=== PATIENT | male | born 1980 | race Caucasian/White ===

== ENCOUNTER 2016-09-14 02:51 | Inpatient (IN) | payer OTHER ==
[~2016-09-14] VITALS: Ht 182.9 cm; Wt 88.5 kg
--- NOTE | 2016-09-14 03:03 | NUR ---
PT BIBA FROM HOME C/O "WARM FUNNY FEELING IN CHEST WITH TINGELING TO FINGERS", LEFT WORSE THAN RIGHT, THAT STARTED AT 0145. ALL SYMPTOMS HAD RESOLVED (EXCEPT FOR SHAKEY FEELING) BY 0215 PRIOR TO EMS ARRIVAL. PT ADMITS TO ETOH AND MARIJUANA LAST EVENING (ETOH AT 2000 AND MARIJUANA AT ABOUT MIDNIGHT) FINGERSTICK BY EMS 111. PT STATES SYMPTOMS STARTED "A FEW MINUTES AFTER BEING INTIMATE" WITH SO, NSR ON CM HR 84. PT DENIES SOB/N/V/DIZZINESS
[2016-09-14 03:07] LABS: ABSOLUTE BASOPHIL COUNT 0 /CUMM (0.0-0.2); ABSOLUTE EOSINOPHIL COUNT 0.2 /CUMM (0.0-0.7); ABSOLUTE GRANULOCYTE CT 3.2 /CUMM (1.4-6.5); ABSOLUTE LYMPH COUNT 3.8 /CUMM (1.2-3.4); ABSOLUTE MONOCYTE COUNT 0.9 /CUMM (0.10-0.60); BASOPHIL % 0.5 % (0.0-2.0); EOSINOPHIL % 1.9 % (0-5); GRANULOCYTE % 39.3 % (42.2-75.2); HEMATOCRIT 42.1 % (42-52); MEAN CORPUSCULAR HGB 27.8 PG (27.0-31.0); MEAN CORPUSCULAR HGB CONC 32.7 G/DL (33.0-37.0); MEAN CORPUSCULAR VOLUME 85.2 FL (80.0-94.0); MEAN PLATELET VOLUME 7.3 FL (7.4-10.4); PLATELET COUNT 280 /CUMM (130-400); RBC DISTRIBUTION WIDTH 13.9 % (11.5-14.5); RED BLOOD CELL CT 4.95 /CUMM (4.70-6.10); WHITE BLOOD CELL COUNT 8.1 /CUMM (4.8-10.8)
--- NOTE | 2016-09-14 03:51 | NUR ---
PT MEDICATED WITH 324MG ASA PO PER EMAR.
--- NOTE | 2016-09-14 03:52 | RADIOLOGY REPORT ---
EXAMINATION: XR PORTABLE CHEST CLINICAL INFORMATION: Chest pain COMPARISON: None TECHNIQUE: Portable frontal view of the chest was obtained. FINDINGS: The lungs are well expanded. There is no focal consolidation, edema, or effusion. No pneumothorax. The cardiomediastinal silhouette is within normal limits. No acute osseous abnormality. Mild irregularity of the distal right clavicle is likely chronic. IMPRESSION: No acute pulmonary findings.
--- NOTE | 2016-09-14 04:10 | ED CARDIAC/CP/PALPITATIONS ---
History of Present Illness General Chief Complaint: Chest Pain Stated Complaint: BIBA CP Source: patient, family, old records Exam Limitations: no limitations Vital Signs & Intake/Output Vital Signs & Intake/Output Vital Signs Date Time Temp Pulse Resp B/P B/P Pulse O2 O2 Flow FiO2 Mean Ox Delivery Rate 09/14 0518 72 20 120/74 98 Room Air 09/14 0512 78 20 128/77 99 Room Air 09/14 0502 97.6 75 18 124/76 98 Room Air 09/14 0307 99 Room Air 09/14 0256 97.7 90 16 140/81 99 Room Air Allergies Coded Allergies: No Known Allergies (12/13/15) Reconcile Medications No Known Home Medications Triage Note: PT BIBA FROM HOME C/O "WARM FUNNY FEELING IN CHEST WITH TINGELING TO FINGERS", LEFT WORSE THAN RIGHT, THAT STARTED AT 0145. ALL SYMPTOMS HAD RESOLVED (EXCEPT FOR SHAKEY FEELING) BY 0215 PRIOR TO EMS ARRIVAL. PT ADMITS TO ETOH AND MARIJUANA LAST EVENING (ETOH AT 2000 AND MARIJUANA AT ABOUT MIDNIGHT) FINGERSTICK BY EMS 111. PT STATES SYMPTOMS STARTED "A FEW MINUTES AFTER BEING INTIMATE" WITH SO, NSR ON CM HR 84. PT DENIES SOB/N/V/DIZZINESS Triage Nurses Notes Reviewed? yes Onset: Just prior to arrival Duration: minute(s):, better, constant, continues in ED Timing: recent history Quality/Severity: mild, warmth Location: substernal Radiation: arms Activities at Onset: activity, 30 minutes after intercourse, marijuana and alcohol Prior Chest Pain/Card Workup: no prior cardiac workup Modifying Factors: Improves With: rest. Nitro Today/Relief: provided by ED Aspirin Today: 325 mg x 1, provided by ED Associated Symptoms: fatigue, shortness of breath HPI: 30 minutes after intercourse marijuana and alcohol patient developed left-sided chest warmth mild in severity radiating to left arm associated with weakness shaking fatigue shortness of breath. Denies fever chills nausea vomiting diarrhea headache dysuria rash bleeding previous episodes. Past History Travel History Traveled to [place] past 21 day No Medical History Any Pertinent Medical History? see below for history Neurological: TIA EENT: NONE Cardiovascular: NONE Respiratory: NONE Gastrointestinal: NONE Hepatic: NONE Renal: NONE Musculoskeletal: NONE Psychiatric: NONE Endocrine: NONE Surgical History Surgical History: none Psychosocial History What is your primary language Estonian Tobacco Use: Never used ETOH Use: occasional use Illicit Drug Use: marijuana Family History Hx Contributory? No Review of Systems Review of Systems Constitutional: Reports: see HPI, malaise, weakness. EENTM: Reports: no symptoms. Respiratory: Reports: see HPI, short of breath. Cardiovascular: Reports: see HPI, chest pain. GI: Reports: no symptoms. Genitourinary: Reports: no symptoms. Musculoskeletal: Reports: no symptoms. Skin: Reports: no symptoms. Neurological/Psychological: Reports: no symptoms. Hematologic/Endocrine: Reports: no symptoms. Immunologic/Allergic: Reports: no symptoms. All Other Systems: Reviewed and Negative Physical Exam Physical Exam General Appearance: well developed/nourished, alert, awake, anxious, mild distress Head: atraumatic, normal appearance Eyes: Bilateral: normal appearance, PERRL, EOMI. Ears, Nose, Throat: normal pharynx, normal ENT inspection, hearing grossly normal Neck: normal inspection, supple, full range of motion, no midline tenderness Respiratory: normal breath sounds, chest non-tender, no respiratory distress, quiet respiration, lungs clear Cardiovascular: regular rate/rhythm, normal peripheral pulses, norml femoral pulses equa Peripheral Pulses: 4+ carotid (R), 4+ carotid (L) Gastrointestinal: normal bowel sounds, soft, non-tender, no organomegaly Back: normal inspection, normal range of motion Extremities: normal inspection, normal capillary refill, normal range of motion, no edema Neurologic/Psych: no motor/sensory deficits, awake, alert, oriented x 3, normal gait, normal mood/affect, 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 Skin: intact, normal color, warm/dry Lymphatic: no anterior cervical nabil Core Measures ACS in differential dx? Yes ASA ordered for poss ACS? Yes-ordered Severe Sepsis Present: No Septic Shock Present: No Progress Differential Diagnosis: AMI, costochondritis, hyperkalemia, hypovolemia, pneumonia Plan of Care: Orders Procedure Date/time Status Regular Diet 09/14 B Active Patient Data 09/14 050 Active OXYGEN SETUP (GEN) 09/14 499 Active Saline Lock 09/14 050 Active Admit to inpatient 09/14 050 Active Vital Signs 09/14 050 Active Activity/Ambulation 09/14 499 Active Code Status 09/14 499 Active Add-on Test (ER Only) 09/15 411 Active Add-on Test (ER Only) 09/14 334 Active URINE DRUG SCREEN FOR ER ONLY 09/14 304 Complete TSH REFLEX 09/14 304 Complete MAGNESIUM 09/14 304 Complete ETHANOL 09/14 304 Complete TROPONIN LEVEL 09/14 258 Complete COMPREHENSIVE METABOLIC PANEL 09/14 258 Complete CBC WITHOUT DIFFERENTIAL 09/14 258 Complete B-TYPE NATRIURETIC PEP (BNP) 09/14 258 Complete EKG 09/15 251 Active Laboratory Tests 09/14/16304: Anion Gap 12, Estimated GFR > 60, BUN/Creatinine Ratio 17.8, Glucose 98, Calcium 10.1, Magnesium 1.8, Total Bilirubin 0.3, AST 19, ALT 25, Alkaline Phosphatase 54, Troponin I 0.14 *H, [id number]-C-Njzqditdwmn Pept 22.2, Total Protein 7.5, Albumin 4.8, Globulin 2.7, Albumin/Globulin Ratio 1.8, TSH &T3 &Free T4 Intrp 1.330, CBC w Diff NO MAN DIFF REQ, RBC 4.95, MCV 85.2, MCH 27.8, RDW 13.9, MPV 7.3 L, Gran % 39.3 L, Lymphocytes % 47.1, Monocytes % 11.2 H, Eosinophils % 1.9, Basophils % 0.5, Absolute Granulocytes 3.2, Absolute Lymphocytes 3.8 H, Absolute Monocytes 0.9 H, Absolute Eosinophils 0.2, Absolute Basophils 0, PUBS MCHC 32.7 L, Serum Alcohol < 10.0 09/14/16303: Urine Opiates Screen < 100.00, Methadone Screen < 40, Barbiturate Screen < 60, Ur Phencyclidine Scrn < 6.00, Amphetamines Screen < 100, U Benzodiazepines Scrn < 85, Urine Cocaine Screen < 50, Urine Cannabis Screen 21.10 (EVELYN COWAN,JEFERSON) Diagnostic Imaging: Viewed by Me: Radiology Read. Discussed w/RAD: Radiology Read. CXR Impression: no acute abnormality, no infiltrates, normal size heart, normal mediastinum Initial ED EKG: normal axis, normal intervals, normal p-waves, normal QRS complex, normal sinus rhythm, no ST T wave changes Rhythm Strip: normal sinus rhythm Departure Departure Disposition: STILL A PATIENT Condition: Stable Clinical Impression Primary Impression: Myocardial ischemia Secondary Impressions: Elevated troponin Referrals: GILLIAN COWAN,JOSHUA Altamirano (PCP/Family) Departure Forms: Customer Survey General Discharge Information Prescriptions: Current Visit Scripts No Known Home Medications Admission Note Spoke With: Lewis LUKE MD Documentation of Exam: Documentation of any treatments & extenuating circumstances including Concerns Regarding Discharge (functional status, medication knowledge or non-compliance, living conditions, etc.) that warrant an admission rather than observation: Cardiac monitoring serial EKG serial lab exam medication adjustment echocardiogram cardiology evaluation continuing care discharge planning Critical Care Note Critical Care Note Critical Care Time: 30-74 min (35)
--- NOTE | 2016-09-14 04:47 | NUR ---
CRITICAL TEST RESULTS [id number] JERO RAO 36 M TESTS AND RESULTS: TROP 0.14 Results received and read back by: JAMMIE MUHAMMAD Results received date and time: 09/14/16 0447 The following provider was notified of the results, and read the results back: DR RIVAS Notified date and time: 09/14/16 at 0448
--- NOTE | 2016-09-14 04:52 | NUR ---
DR RIVAS IN FOR POC
--- NOTE | 2016-09-14 05:18 | NUR ---
THIS RN ESTABLISHED IV ACCESS IN LH #20.
--- NOTE | 2016-09-14 05:20 | NUR ---
PT MEDICATED WITH 5MG LOPRESSOR IV AND 0.5GM NITROBID APPLIED TO CHEST WALL. SEE VITAL DOCUMENTION.
--- NOTE | 2016-09-14 05:30 | NUR ---
BED ASSIGNMENT 174-2
--- NOTE | 2016-09-14 05:34 | NUR ---
PT STATES THAT AT AGE 31 HE HAD A TIA AND HIS FATHER AT AN EARLY AGE FROM A "BAD HEART VALVE"
--- NOTE | 2016-09-14 06:00 | NUR ---
THIS RN CALLED TELE FLOOR 3X TO GIVE REPORT AND WAS PLACED ON HOLD WITH NO ANSWER.
--- NOTE | 2016-09-14 06:25 | NUR ---
REPORT GIVEN TO ARYAN CAMPBELL.
--- NOTE | 2016-09-14 06:44 | History & Physical ---
ANABEL COLBERT MD 09/14/16 0637: General Information and HPI MD Statement: I have seen and personally examined JERO RAO and documented this H&P. The patient is a 36 year old M who presented with a patient stated chief complaint of chest warmth. Source of Information: patient Exam Limitations: no limitations History of Present Illness: 36 year old male with past medical history significant for TIA 5 years ago presents with sudden onsent chest warm and tingling sensation radiating down his left arm of sudden onset. Began last night after being intimate with partner, lasted less than one hour. Patient says he felt jittery, anxious and tremulous, but denies any dyspnea, palpitations or diaphoresis. The sensation resolved on its own spontaneously. He has normal exercise tolerance, doesn't smoke, drank 2 gin and tonics and smoked some marijuana before the event. He was asymptomatic on arrival to the ED, no EKG changes, and received aspirin, lopressor, nitroglycerin. The TIA was approximately five years ago. He woke up with an expressive aphasia and left sided deficit (difficulty tying his shoes and fine motor movements) that resolved over a day or two. He has had serial MRIs to monitor a bleed on the brain, performed at [facility]. In the course of his workup, it sounds like he had a carotid plaque on carotid doppler, some T wave inversions on stress testing, and a positive EMG test on the left upper extremity. He says most of his records can be obtained through his PCP, Keny Messina or [facility] but has had other testing performed in [place]. Allergies/Medications Allergies: Coded Allergies: No Known Allergies (12/13/15) Home Med list No Known Home Medications Compliance With Home Meds: GOOD Past History Travel History Traveled to [place] past 21 day No Medical History Neurological: TIA EENT: NONE Cardiovascular: NONE Respiratory: NONE Gastrointestinal: NONE Hepatic: NONE Renal: NONE Musculoskeletal: NONE Psychiatric: NONE Endocrine: NONE Surgical History Surgical History: none Past Family/Social History Family History Relations & Conditions if any FATHER FH: heart failure uncle FH: diabetes mellitus Psychosocial History ETOH Use: occasional use Illicit Drug Use: marijuana Functional Ability ADLs Independent: dressing, eating, toileting, bathing. Ambulation: independent IADLs Independent: shopping, housework, finances, food prep, telephone, transportation , medication admin. Employment History Employment Employed Review of Systems Review of Systems Constitutional: Reports: no symptoms. EENTM: Denies: blurred vision, visual changes, hearing changes, nasal pain, throat pain , mouth pain. Cardiovascular: Reports: chest pain. Denies: edema, orthopena, palpitations, peripheral edema, syncope. Respiratory: Denies: cough, orthopnea, short of breath, wheezing. GI: Denies: abdominal pain, constipation, diarrhea, melena, nausea, vomiting. Genitourinary: Reports: no symptoms. Musculoskeletal: Reports: muscle stiffness. Skin: Reports: no symptoms. Neurological/Psychological: Reports: numbness (left arm), tingling (left arm). Exam & Diagnostic Data Last 24 Hrs of Vital Signs/I&O Vital Signs Date Time Temp Pulse Resp B/P B/P Pulse O2 O2 Flow FiO2 Mean Ox Delivery Rate 09/14 0421 66 20 118/74 99 Room Air 09/14 0519 97.6 72 20 124/76 09/14 0518 72 20 120/74 98 Room Air 09/14 0512 78 20 128/77 99 Room Air 09/14 0502 97.6 75 18 124/76 98 Room Air 09/14 0307 99 Room Air 09/14 0256 97.7 90 16 140/81 99 Room Air Intake & Output 09/14 0800 09/14 0000 09/13 1600 Intake Total Output Total Balance Patient 195 lb Weight Physical Exam General Appearance Alert, Oriented X3, Cooperative, No Acute Distress Skin No Rashes, No Breakdown Skin Temp/Moisture Exam: Warm/Dry HEENT Atraumatic, PERRLA, EOMI, Mucous Membr. moist/pink Neck Supple, No JVD Cardiovascular Regular Rate, Normal S1, Normal S2, No Murmurs Lungs Clear to Auscultation, Normal Air Movement Abdomen Normal Bowel Sounds, Soft, No Tenderness, No Masses Neurological Normal Speech, Strength at 5/5 X4 Ext, Normal Tone, Sensation Intact, Cranial Nerves 3-12 NL Extremities No Clubbing, No Cyanosis, No Edema, Normal Pulses, No Tenderness/ Swelling Vascular Normal Pulses, Pulses Symmetrical Last 24 Hrs of Labs/Igor: Laboratory Tests 09/14/16 0305: Anion Gap 12, Estimated GFR > 60, BUN/Creatinine Ratio 17.8, Glucose 98, Calcium 10.1, Magnesium 1.8, Total Bilirubin 0.3, AST 19, ALT 25, Alkaline Phosphatase 54, Troponin I 0.14 *H, Sxb-N-Romvovxlxtk Pept 22.2, Total Protein 7.5, Albumin 4.8, Globulin 2.7, Albumin/Globulin Ratio 1.8, TSH &T3 &Free T4 Intrp 1.330, CBC w Diff NO MAN DIFF REQ, RBC 4.95, MCV 85.2, MCH 27.8, RDW 13.9, MPV 7.3 L, Gran % 39.3 L, Lymphocytes % 47.1, Monocytes % 11.2 H, Eosinophils % 1.9, Basophils % 0.5, Absolute Granulocytes 3.2, Absolute Lymphocytes 3.8 H, Absolute Monocytes 0.9 H, Absolute Eosinophils 0.2, Absolute Basophils 0, PUBS MCHC 32.7 L, Serum Alcohol < 10.0 09/14/16 0304: Urine Opiates Screen < 100.00, Methadone Screen < 40, Barbiturate Screen < 60, Ur Phencyclidine Scrn < 6.00, Amphetamines Screen < 100, U Benzodiazepines Scrn < 85, Urine Cocaine Screen < 50, Urine Cannabis Screen 21.10 Diagnostic Data EKG Results nsr, no st t changes CXR Results no acute cardiopulmonary findings Assessment/Plan Assessment: 36 year old man with past medical history of TIA presents with chest warmth and detectable troponins on presentation. 1. NSTEMI: No acute EKG changes, troponin positive at 0.14, currently asymptomatic. Trend serial EKGs and troponins Echocardiogram Cardiology consultation Can hold off heparin gtt for now Continue ASA and beta yemi Nitroglycerin if symptomatic 2. History of TIA: Resume daily ASA Obtain records from PCP and radiological studies Lipid panel, consider statin therapy Heart healthy diet DVT [id number]-[id number] Full code As Ranked By This Provider Problem List: 1. Myocardial ischemia Core Measures/Miscellaneous Acute Coronary Syndrome ACS Diagnosis: Yes Cerebrovascular Accident CVA/TIA Diagnosis: No Congestive Heart Failure CHF Diagnosis: No VTE (View Protocol) VTE Risk Factors: [facility] illness [facility] prophylaxis d/t: No contraindications No VTE Pharm Prophylaxis d/t: No contraindications VTE Diagnosis: No VTE Type: NONE VTE Confirmed by (Test): NONE Sepsis (View Protocol) Severe Sepsis Present: No Septic Shock Septic Shock Present: No Miscellaneous Documentation Attending Case Discussed With: TI COWANLewis Primary Care Physician: KENY MESSINA MD Patient sees these Specialists none Level of Patient Care: Telemetry JESSI SANCHEZ 09/14/16 0647: Resident Review Statement Resident Statement: examined this patient, discussed with engineer internship, agreed with engineer internship Other Findings: It is 36-year-old gentleman with past medical history significant for TIA age 31 not on a statin or aspirin came with chief complaint of chest warmth, numbness and tingling of left arm around midnight after he had alcohol, marijuana and intimate with his partner. He denied chest pain but explained that it was feeling cough warmth that he had for couple of minutes and went away on its own not associated with any jaw pain, dizziness, diaphoresis, palpitations, headache. He also had left arm numbness and tingling but he had that feelings off and on in the past as well and was seen by neurologist . He endorses have a lot of stress at work. He denied any shortness of breath, cough , fever, chills, palpitations, headache, dizziness, any urinary or bowel complaints. He denied any exertional dyspnea as well. His father in his 30s with cardiac problems. Was given nitroglycerin, aspirin and beta yemi in ER Vital signs on admission were temperature 97.7, pulse 90, respiratory rate 16, blood pressure 140/81 he is saturating 99% on room air. Labs on admission were normal except elevated troponin to 0.14 with no acute EKG changes Chest x-ray is normal, no acute cardiopulmonary pathology Physical examination Alert and related intensely Head atraumatic Neck supple Chest clear to auscultation Heart S1-S2 normal with no added sounds Abdomen soft with normal bowel sounds Extremities shows no edema No neurological deficit noted on neurological examination Assessment and plan 36-year-old male history of TIA at age 22 9K with chief complaint of chest warmth and found to have elevated troponins with no EKG changes most likely and STEMI. We will admit patient on telemetry floor and will take it for the following problems Problem list 1. History of TIA not on statins or aspirin 2. Positive family history, father at age 30 with cardiac event 3. History of marijuana use Plan 1. Cardiology consultation 2. Echocardiogram 3. We will trend troponins and EKG he'll be 4. Patient was discussed with Dr. Montoya and we will watch him for now without heparin and will trend . But if in case troponins went up or any new EKG changes. 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 He was told at that time that he had some T-wave inversions back then. He would need stress test but that can be taken care as outpatient. 5. Will continue aspirin 6. We will check lipid panel. Patient is full code Pharmacological DVT prophylaxis Heart healthy diet
--- NOTE | 2016-09-14 08:46 | Cons- Cardiology ---
General Information and HPI Consulting Request Date of Consult: 09/14/16 Requested By: Lewis LUKE MD Reason for Consult: chest pain with elevated troponin Source of Information: patient Exam Limitations: no limitations History of Present Illness: 36 year old male with past medical history significant for TIA 5 years ago presents with sudden onsent chest warm and tingling sensation radiating down his left arm of sudden onset. Began last night after being intimate with partner, lasted less than one hour. Patient says he felt jittery, anxious and tremulous, but denies any dyspnea, palpitations or diaphoresis. The sensation resolved on its own spontaneously. He has normal exercise tolerance, doesn't smoke, drank 2 gin and tonics and smoked some marijuana before the event. He was asymptomatic on arrival to the ED, no EKG changes, and received aspirin, lopressor, nitroglycerin. The TIA was approximately five years ago. He woke up with an expressive aphasia and left sided deficit (difficulty tying his shoes and fine motor movements) that resolved over a day or two. He has had serial MRIs to monitor a bleed on the brain, performed at [facility]. In the course of his workup, it sounds like he had a carotid plaque on carotid doppler, some T wave inversions on stress testing, and a positive EMG test on the left upper extremity. He says most of his records can be obtained through his PCP, Keny Messina or [facility] but has had other testing performed in [place]. The patient also notes that he had a small abnormality on his MRI which was felt to be consistent with an old hemorrhage or "stain". No changes on serial MRIs were noted. In addition, in spite of the plaque noted on carotid ultrasound and the TIA, the patient was never treated with any medications other than baby aspirin. Strong family history of vascular disease in his father. Allergies/Medications Allergies: Coded Allergies: No Known Allergies (12/13/15) Home Med List: No Known Home Medications Current Medications: Current Medications Sig/Rosa Start time Last Medication Dose Route Stop Time Status Admin Acetaminophen 650 MG Q6P PRN 09/14 0715 AC PO Aspirin 81 MG DAILY 09/14 1000 AC PO Aspirin 0 .STK-MED ONE 09/14 0355 DC PO Aspirin 324 MG ONCE ONE 09/14 0345 DC 09/14 PO 09/14 0346 0351 Enoxaparin Sodium 40 MG DAILY 09/14 1000 AC SC Ibuprofen 600 MG Q6P PRN 09/14 714 AC PO Magnesium Oxide 400 MG ONE ONE 09/14 699 DC PO 09/14 700 Metoprolol Tartrate 0 .STK-MED ONE 09/14 0508 DC IV Metoprolol Tartrate 5 MG ONCE ONE 09/14 0500 DC 09/14 IV 09/14 0501 0519 Nitroglycerin 0.5 GM Q6P PRN 09/14 744 AC TOP Nitroglycerin 0 .STK-MED ONE 09/14 050 DC TOP Nitroglycerin 0.5 GM ONCE ONE 09/14 0500 DC 09/14 TOP 09/14 0501 0519 Oxycodone/ 2 TAB Q6P PRN 09/14 714 AC Acetaminophen PO Potassium Chloride 20 MEQ ONCE ONE 09/14 699 DC PO 09/14 700 Past History Travel History Traveled to [place] past 21 day No Medical History Blood Transfusion Hx: No Neurological: TIA EENT: NONE Cardiovascular: NONE Respiratory: NONE Gastrointestinal: NONE Hepatic: NONE Renal: NONE Musculoskeletal: NONE Psychiatric: NONE Endocrine: NONE Surgical History Surgical History: 1 Family History Relations & Conditions If Any: FATHER FH: heart failure uncle FH: diabetes mellitus Psychosocial History Where Do You Live? Home Services at Home: None Smoking Status: Unknown If Ever Smoked ETOH Use: occasional use Illicit Drug Use: marijuana Functional Ability ADLs Independent: dressing, eating, toileting, bathing. Ambulation: independent IADLs Independent: shopping, housework, finances, food prep, telephone, transportation , medication admin. Employment History Employment: Employed Exam & Diagnostic Data Vital Signs and I&O Vital Signs Date Time Temp Pulse Resp B/P B/P Pulse O2 O2 Flow FiO2 Mean Ox Delivery Rate 09/14 0521 66 20 118/74 99 Room Air 09/14 0519 97.6 72 20 124/76 09/14 0518 72 20 120/74 98 Room Air 09/14 0512 78 20 128/77 99 Room Air 09/14 0502 97.6 75 18 124/76 98 Room Air 09/14 0307 99 Room Air 09/14 0256 97.7 90 16 140/81 99 Room Air Intake & Output 09/14 1600 09/14 0000 09/13 1600 09/13 0000 Intake Total Output Total Balance Patient 195 lb Weight Physical Exam: Well-developed, well-nourished, white male. No acute distress. Alert and oriented 3. HEENT: Normal Neck: JVP normal, carotid upstrokes normal bilaterally. No audible bruits. Chest: Clear bilaterally. Regular S1, S2. 1/6 systolic murmur left lower sternal border Abdomen: Unremarkable Extremities: Normal Labs/Igor Results: Laboratory Tests 09/14 09/14 0305 0304 Chemistry Sodium (137 - 145 mmol/L) 140 Potassium (3.5 - 5.1 mmol/L) 3.8 Chloride (98 - 107 mmol/L) 103 Carbon Dioxide (22 - 30 mmol/L) 25 Anion Gap (5 - 16) 12 BUN (9 - 20 mg/dL) 16 Creatinine (0.7 - 1.2 mg/dL) 0.9 Estimated GFR (>60 ml/min) > 60 BUN/Creatinine Ratio (7 - 25 %) 17.8 Glucose (65 - 99 mg/dL) 98 Hemoglobin A1c (4.2 - 5.8 %) Pending Calcium (8.4 - 10.2 mg/dL) 10.1 Magnesium (1.6 - 2.3 mg/dL) 1.8 Total Bilirubin (0.2 - 1.3 mg/dL) 0.3 AST (17 - 59 U/L) 19 ALT (21 - 72 U/L) 25 Alkaline Phosphatase (< 127 U/L) 54 Troponin I (<0.11 ng/ml) 0.14 *H [id number] Pept (<125 pg/mL) 22.2 Total Protein (6.3 - 8.2 g/dL) 7.5 Albumin (3.5 - 5.0 g/dL) 4.8 Globulin (1.9 - 4.2 gm/dL) 2.7 Albumin/Globulin Ratio (1.1 - 2.2 %) 1.8 TSH &T3 &Free T4 Intrp (0.27 - 4.20 uIU/mL) 1.330 Hematology CBC w Diff NO MAN DIFF REQ WBC (4.8 - 10.8 /CUMM) 8.1 RBC (4.70 - 6.10 /CUMM) 4.95 Hgb (14.0 - 18.0 G/DL) 13.8 L Hct (42 - 52 %) 42.1 MCV (80.0 - 94.0 FL) 85.2 MCH (27.0 - 31.0 PG) 27.8 RDW (11.5 - 14.5 %) 13.9 Plt Count (130 - 400 /CUMM) 280 MPV (7.4 - 10.4 FL) 7.3 L Gran % (42.2 - 75.2 %) 39.3 L Lymphocytes % (20.5 - 51.1 %) 47.1 Monocytes % (1.7 - 9.3 %) 11.2 H Eosinophils % (0 - 5 %) 1.9 Basophils % (0.0 - 2.0 %) 0.5 Absolute Granulocytes (1.4 - 6.5 /CUMM) 3.2 Absolute Lymphocytes (1.2 - 3.4 /CUMM) 3.8 H Absolute Monocytes (0.10 - 0.60 /CUMM) 0.9 H Absolute Eosinophils (0.0 - 0.7 /CUMM) 0.2 Absolute Basophils (0.0 - 0.2 /CUMM) 0 PUBS MCHC (33.0 - 37.0 G/DL) 32.7 L Toxicology Urine Opiates Screen (>2000 NG/ML) < 100.00 Methadone Screen (>300 NG/ML) < 40 Barbiturate Screen (>200 NG/ML) < 60 Ur Phencyclidine Scrn (>25 NG/ML) < 6.00 Amphetamines Screen (>1000 NG/ML) < 100 U Benzodiazepines Scrn (>200 NG/ML) < 85 Urine Cocaine Screen (>300 NG/ML) < 50 Urine Cannabis Screen (>50 NG/ML) 21.10 Serum Alcohol (<10 MG/DL) < 10.0 Diagnostic Data EKG Results NOrmal ECG #2, sinus rhythm, slow heart rhythm previous ECG, nonspecific ST-T changes consistent with early repolarization CXR Results FINDINGS: The lungs are well expanded. There is no focal consolidation, edema, or effusion. No pneumothorax. The cardiomediastinal silhouette is within normal limits. No acute osseous abnormality. Mild irregularity of the distal right clavicle is likely chronic. IMPRESSION: No acute pulmonary findings. Assessment/Plan Assessment/Plan Assessment: 1. Chest discomfort with no ECG changes but minimally elevated troponin-at the present time, it is unclear whether this was a true event related to other issues. Nevertheless, in view of the minimally elevated troponin, and the patient's significant family history in his father, further evaluation is clearly warranted. Further plans will depend on the follow-up troponins, echocardiogram, etc. 2. Strong family history of cardiovascular disease 3. History of prior TIA Recommendations: -Trended troponins until decreasing -ECG later today and again in the morning -Echocardiogram to rule out wall motion abnormalities -Please try to obtain any available records from [facility] or his primary care physician for further evaluation, including stress test, echocardiogram, ANETA, etc. -Further plans with respect to other cardiac testing such as stress testing, etc. will be made after the aforementioned results are available. -Please repeat an ECG if there is any recurrence of any symptoms. -Please repeat a fasting lipid profile while here in the hospital. -Homocysteine level to be checked Consult Acknowledgment - Thank you for your consult request.
[2016-09-14 15:43] VITALS: BP 100/60
--- NOTE | 2016-09-14 16:11 | ULTRASOUND REPORT ---
EXAMINATION: US DUPLEX CAROTID AND VERTEBRAL CLINICAL INFORMATION: Chest pain. Left arm weakness. Assess for plaque COMPARISON: None TECHNIQUE: Real-time ultrasound and Doppler techniques (integrating B-mode 2D vascular images, Doppler spectral analysis and color flow Doppler imaging) were utilized to interrogate the extracranial carotid and vertebral arteries bilaterally. The degree of stenosis determined by criteria similar to NASCET. FINDINGS: Moderate plaque seen within the left ICA distally seen in a limited fashion. INTERNAL CAROTID PEAK SYSTOLIC VELOCITY: RIGHT: 73 cm/sec LEFT: 1:30 cm/sec Peak end-diastolic velocities ICAs: RIGHT: 42 LEFT: 56 ADDITIONAL FINDINGS: There is antegrade low resistance flow in the vertebral arteries. IMPRESSION: 1. Approximately 50-79% stenosis of the left ICA distally. 2. Less than 50% luminal narrowing of the right ICA origin.
[2016-09-14 23:11] VITALS: BP 90/62
[2016-09-15 07:19] VITALS: BP 110/60
--- NOTE | 2016-09-15 07:43 | PN- Housestaff ---
Subjective Follow-up For: 1. History of TIA 2. Chest pain, with borderline troponin elevation 3. Strong family history of cardiovascular disease Complaints: no complaints Tele-Events Since Last Visit: sinus rhythm No acute overnight events Subjective: Patient was seen and examined this morning. He is alert awake and oriented to time place and person. No acute overnight events. Patient denies any chest pain this morning. Denies any shortness of breath, palpitations, diaphoresis, lightheadedness or dizziness. Vitals remained stable, afebrile heart rate 68, respiratory 20, blood pressure 110/60, saturating at 95 on room air Going for stress test this morning Review of Systems Constitutional: Reports: see HPI. Objective Last 24 Hrs of Vital Signs/I&O Vital Signs Date Time Temp Pulse Resp B/P B/P Pulse O2 O2 Flow FiO2 Mean Ox Delivery Rate 09/15 0719 98.2 64 18 110/60 98 Room Air 09/14 2311 98.2 68 18 90/62 97 Room Air 09/14 1543 97.8 71 18 100/60 96 Intake & Output 09/15 1600 09/15 0800 09/15 0000 Intake Total 100 100 Output Total Balance 100 100 Intake, Oral 100 100 Physical Exam General Appearance: Alert, Oriented X3, Cooperative, No Acute Distress Skin: No Rashes, No Breakdown, No Significant Lesion HEENT: Atraumatic, PERRLA, EOMI, Mucous Membr. moist/pink Neck: Supple, No JVD, No thryomegaly Lymphatic: Cervical nl Cardiovascular: Normal S1, Normal S2 Lungs: Normal Air Movement Abdomen: Normal Bowel Sounds, Soft, No Tenderness Neurological: Normal Speech, Strength at 5/5 X4 Ext, Normal Tone, Sensation Intact, Cranial Nerves 3-12 NL Extremities: No Clubbing, No Cyanosis, No Edema Vascular: Pulses Symmetrical Current Medications: Current Medications Sig/Rosa Start time Last Medication Dose Route Stop Time Status Admin Acetaminophen 650 MG Q6P PRN 09/14 0615 AC PO Aspirin 81 MG DAILY 09/14 1000 AC 09/14 PO 1009 Atorvastatin Calcium 40 MG 1700 09/14 1700 AC 09/14 PO 1607 Enoxaparin Sodium 40 MG DAILY 09/14 1000 AC 09/15 SC 1007 Ibuprofen 600 MG Q6P PRN 09/14 0615 AC PO Metoprolol Tartrate 12.5 MG BID 09/14 1021 DC PO Morphine Sulfate 1 MG Q6 09/14 1200 DC IV Nitroglycerin 0.5 GM Q6P PRN 09/14 744 AC TOP Oxycodone/ 2 TAB Q6P PRN 09/14 714 AC Acetaminophen PO Last 24 Hrs of Lab/Igor Results Last 24 Hrs of Labs/Mics: Laboratory Tests 09/15/16 0744: Anion Gap 10, Estimated GFR > 60, BUN/Creatinine Ratio 17.8, CBC w Diff NO MAN DIFF REQ, RBC 5.08, MCV 85.4, MCH 27.5, RDW 14.1, MPV 7.8, Gran % 46.9, Lymphocytes % 40.5, Monocytes % 10.1 H, Eosinophils % 2.0, Basophils % 0.5, Absolute Granulocytes 3.0, Absolute Lymphocytes 2.6, Absolute Monocytes 0.6, Absolute Eosinophils 0.1, Absolute Basophils 0, PUBS MCHC 32.2 L 09/15/16 0600: Homocysteine Pending 09/14/16 1600: Troponin I 0.08 Assessment/Plan Assessment: This is 36-year-old gentleman with past medical history significant for TIA at age 31 not on a statin or aspirin came with chief complaint of chest pain, numbness and tingling of left arm around midnight after he had alcohol, marijuana and intimate with his partner. His father in his 30s with cardiac problems. Was given nitroglycerin, aspirin and beta yemi in ER Vital signs on admission were temperature 97.7, pulse 90, respiratory rate 16, blood pressure 140/81 he is saturating 99% on room air. Labs on admission were normal except elevated troponin to 0.14 with no acute EKG changes Chest x-ray is normal, no acute cardiopulmonary pathology Problem list 1. Chest pain, with borderline troponin elevation 1. History of TIA not on statins or aspirin 2. Positive family history, father at age 30 with cardiac event 3. History of marijuana use Assessment and plan 36-year-old male history of TIA at age 31 with chief complaint of chest pain and found to have elevated troponins with no EKG changes most likely NSTEMI. He was admited to telemetry floor. 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 He was told at that time that he had some T-wave inversions back then. * going for nuclear stress test today. If no significant ischemia is seen on the nuclear stress test, then the patient should be discharged to home later today. * Will continue aspirin * will continue statins * nitrobid as needed Patient is full code Pharmacological DVT prophylaxis- lovenox Heart healthy diet Problem List: 1. Elevated troponin Pain Ratin Pain Location: chest pain Pain Goal: Remain pain free Pain Plan: tylinol Tomorrow's Labs & Rationales: none
--- NOTE | 2016-09-15 09:06 | PN- Cardiology ---
Subjective Subjective: The patient reports that he is feeling well. No chest pain. No shortness of breath. No diaphoresis. No palpitations. No lightheadedness or dizziness. No nausea or vomiting. Objective Vital Signs and I&Os Vital Signs Date Time Temp Pulse Resp B/P B/P Pulse O2 O2 Flow FiO2 Mean Ox Delivery Rate 09/15 718 98.2 64 18 110/60 98 Room Air 09/14 2311 98.2 68 18 90/62 97 Room Air 09/14 1543 97.8 71 18 100/60 96 Intake & Output 09/15 1600 09/15 0809/15 0000 09/14 1600 09/14 0809/14 0000 Intake Total 100 100 600 Output Total Balance 100 100 600 Intake, Oral 100 100 600 Patient 195 lb 195 lb Weight Weight Reported by Patient Measurement Method Physical Exam: Gen: NAD HEENT: normal Lungs: clear to auscultation, normal resp. effort Heart: RRR, S1, S2, 1/6 systolic murmur Abdomen: Soft, nontender, no masses Extremities: No clubbing, cyanosis, or edema. Neuro: Alert and oriented x 3, cranial nerves intact Current Medications: Current Medications Sig/Rosa Start time Last Medication Dose Route Stop Time Status Admin Acetaminophen 650 MG Q6P PRN 09/14 0715 AC PO Aspirin 81 MG DAILY 09/14 1021 CAN PO Aspirin 81 MG DAILY 09/14 1000 AC 09/14 PO 1009 Atorvastatin Calcium 40 MG 1700 09/14 1700 AC 09/14 PO 1607 Enoxaparin Sodium 40 MG DAILY 09/14 1000 AC SC Ibuprofen 600 MG Q6P PRN 09/14 0715 AC PO Metoprolol Tartrate 12.5 MG BID 09/14 1021 DC PO Morphine Sulfate 1 MG Q6 09/14 1200 DC IV Nitroglycerin 0.5 GM Q6P PRN 09/14 0745 AC TOP Oxycodone/ 2 TAB Q6P PRN 09/14 0715 AC Acetaminophen PO Results Last 48 Hrs of Labs/Mics: Laboratory Tests 09/15/16 0744: Sodium Pending, Potassium Pending, Chloride Pending, Carbon Dioxide Pending, Anion Gap Pending, BUN Pending, Creatinine Pending, BUN/Creatinine Ratio Pending , CBC w Diff Pending, WBC Pending, RBC Pending, Hgb Pending, Hct Pending, MCV Pending, MCH Pending, RDW Pending, Plt Count Pending, MPV Pending, PUBS MCHC Pending 09/15/16 0600: Homocysteine Pending 09/14/16 1600: Troponin I 0.08 09/14/16 0958: Homocysteine Cancelled 09/14/16 0958: Triglycerides Cancelled, Cholesterol Cancelled, LDL Cholesterol, Calc Cancelled, HDL Cholesterol Cancelled, Cholesterol/HDL Ratio Cancelled 09/14/16 0958: Troponin I 0.09, Triglycerides 33, Cholesterol 197, LDL Cholesterol, Calc 133 H , HDL Cholesterol 58, Cholesterol/HDL Ratio 3.4 09/14/16 0305: Anion Gap 12, Estimated GFR > 60, BUN/Creatinine Ratio 17.8, Glucose 98, Hemoglobin A1c Pending, Calcium 10.1, Magnesium 1.8, Total Bilirubin 0.3, AST 19 , ALT 25, Alkaline Phosphatase 54, Troponin I 0.14 *H, [id number] Pept 22.2, Total Protein 7.5, Albumin 4.8, Globulin 2.7, Albumin/Globulin Ratio 1.8, TSH &T3 &Free T4 Intrp 1.330, CBC w Diff NO MAN DIFF REQ, RBC 4.95, MCV 85.2, MCH 27.8, RDW 13.9, MPV 7.3 L, Gran % 39.3 L, Lymphocytes % 47.1, Monocytes % 11.2 H, Eosinophils % 1.9, Basophils % 0.5, Absolute Granulocytes 3.2, Absolute Lymphocytes 3.8 H, Absolute Monocytes 0.9 H, Absolute Eosinophils 0.2, Absolute Basophils 0, PUBS MCHC 32.7 L, Serum Alcohol < 10.0 09/14/16 0304: Urine Opiates Screen < 100.00, Methadone Screen < 40, Barbiturate Screen < 60, Ur Phencyclidine Scrn < 6.00, Amphetamines Screen < 100, U Benzodiazepines Scrn < 85, Urine Cocaine Screen < 50, Urine Cannabis Screen 21.10 Assessment/Plan Assessment/Plan Assessment: 1. History of TIA 2. Chest pain, with borderline troponin elevation 3. Strong family history of cardiovascular disease Plan: * Continue current medications. * Nuclear stress test today. * If no significant ischemia is seen on the nuclear stress test, then the patient should be discharged to home later today. * Follow up with Dr. Montoya in one to 2 weeks. Continue telemetry? Yes
[2016-09-15 09:30] LABS: ABSOLUTE BASOPHIL COUNT 0 /CUMM (0.0-0.2); ABSOLUTE EOSINOPHIL COUNT 0.1 /CUMM (0.0-0.7); ABSOLUTE LYMPH COUNT 2.6 /CUMM (1.2-3.4); ABSOLUTE MONOCYTE COUNT 0.6 /CUMM (0.10-0.60); BASOPHIL % 0.5 % (0.0-2.0); GRANULOCYTE % 46.9 % (42.2-75.2); HEMATOCRIT 43.3 % (42-52); MEAN CORPUSCULAR HGB 27.5 PG (27.0-31.0); MEAN CORPUSCULAR HGB CONC 32.2 G/DL (33.0-37.0); MEAN CORPUSCULAR VOLUME 85.4 FL (80.0-94.0); MEAN PLATELET VOLUME 7.8 FL (7.4-10.4); PLATELET COUNT 262 /CUMM (130-400); RBC DISTRIBUTION WIDTH 14.1 % (11.5-14.5); RED BLOOD CELL CT 5.08 /CUMM (4.70-6.10); WHITE BLOOD CELL COUNT 6.4 /CUMM (4.8-10.8)
[2016-09-15 15:17] VITALS: BP 120/82
[2016-09-15] MEDS ORDERED: ATORVASTATIN CA40 M1 PO (16:19)
[2016-09-15] MEDS ORDERED: ASPIRIN81 M4 PO (16:19)
[2016-09-15] MEDS ORDERED: NITRO-BID1 GM TOP (16:19)
--- NOTE | 2016-09-15 16:22 | Patient Discharge Instructions ---
Discharge Instructions General Discharge Information You were seen/treated for: 1. History of TIA 2. Chest pain, with borderline troponin elevation 3. Strong family history of cardiovascular disease You had these procedures: Nuclear stress test Watch for these problems: Chest pain Palpitations Shortness of breath Special Instructions: Follow-up with your primary care doctor in 1 week after discharge Please follow-up with audio video mechanic in 1-2 weeks after discharge Diet Continue normal diet: Yes Activity Full Activity/No Limits: Yes Acute Coronary Syndrome Inclusion Criteria At DC or during hospital stay patient has or had the following: ACS DIAGNOSIS Yes Discharge Core Measures Meds if any: Prescribed or Continued at Discharge Meds if any: NOT Prescribed or Continued at Discharge Congestive Heart Failure Inclusion Criteria At DC or during hospital stay patient has or had the following: CHF DIAGNOSIS No Discharge Core Measures Meds if any: Prescribed or Continued at Discharge Meds if any: NOT Prescribed or Continued at Discharge Cerebrovascular accident Inclusion Criteria At DC or during hospital stay patient has or had the following: CVA/TIA Diagnosis No Discharge Core Measures Meds if any: Prescribed or Continued at Discharge Meds if any: NOT Prescribed or Continued at Discharge Venous thromboembolism Inclusion Criteria VTE Diagnosis No VTE Type NONE VTE Confirmed by (Test) NONE Discharge Core Measures - Per Current guidelines, there needs to be overlap - treatment for the first 5 days of Warfarin therapy. - If discharged on Warfarin prior to 5 days of - overlap therapy, the patient will need to be - assessed for post discharge needs including - *Post discharge parental anticoagulation - *Warfarin and/or parental anticoagulation education - *Follow up date to check INR post discharge At least 5 days overlap therapy as Inpatient No Meds if any: Prescribed or Continued at Discharge Note: Overlap Therapy is Warfarin and Anticoagulant Meds if any: NOT Prescribed or Continued at Discharge
--- NOTE | 2016-09-15 17:45 | NUCLEAR MEDICINE REPORT ---
EXERCISE STRESS AND RESTING SPECT MYOCARDIAL PERFUSION IMAGING STUDY WITH GATED SPECT IMAGES: CLINICAL INDICATION: Chest pain. PROCEDURE: Regional myocardial perfusion was assessed using a 1 day protocol. Stress images were obtained on 09/15/2016 following the intravenous administration of 17.6 mCi Tc 99m Myoview. Stress was performed using the standard Kevin protocol, with the patient reaching a peak heart rate of 91% maximal predicted heart rate. Rest images were obtained 09/15/2016 following the intravenous administration of 28.7 mCi Technetium 99m Myoview. Single photon emission tomographic (SPECT) images were obtained. SPECT images were acquired in a 64 x 64 matrix of 64 projections over 180 degrees. These were reconstructed into standard short axis, horizontal and vertical long axis cardiac projections. FINDINGS: The post stress images demonstrate the left ventricular chamber to be normal in size. There is homogeneous distribution of activity in the left ventricular myocardium with no regions of abnormally decreased activity noted. The resting images also demonstrate homogeneous distribution of activity in the left ventricular myocardium, and are not significantly changed from the post stress images. The stress images were obtained using a gated SPECT technique, which permits visualization of wall motion and calculation of the left ventricular ejection fraction. No left ventricular wall motion abnormalities are noted on the stress study. The calculated left ventricular ejection fraction is 51% on the stress study. No previous study is available for comparison. IMPRESSION: Normal exercise stress and resting myocardial perfusion study with normal left ventricular wall motion and ejection fraction.
--- NOTE | 2016-09-16 07:36 | Discharge Summary ---
Visit Information Visit Dates Admission Date: 09/14/16 Discharge Date: 09/15/16 Hospital Course Course Attending Physician: Lewis LUKE MD Primary Care Physician: GILLIAN COWAN,JOSHUA Altamirano Other Care Providers: Dr. Ng pillowcase turner Consulting Request: Consulting Specialty: Cardiology Hospital Course: This is 36-year-old gentleman with past medical history significant for TIA at age 31 not on a statin or aspirin came with chief complaint of chest pain, numbness and tingling of left arm around midnight after he had alcohol, marijuana and intimate with his partner. His father in his 30s with cardiac problems. Was given nitroglycerin, aspirin and beta yemi in ER Vital signs on admission were temperature 97.7, pulse 90, respiratory rate 16, blood pressure 140/81 he is saturating 99% on room air. Labs on admission were normal except elevated troponin to 0.14 with no acute EKG changes Chest x-ray is normal, no acute cardiopulmonary pathology Problem list 1. Chest pain, with borderline troponin elevation 1. History of TIA not on statins or aspirin 2. Positive family history, father at age 30 with cardiac event 3. History of marijuana use Chest pain 36-year-old male history of TIA at age 31 with chief complaint of chest pain and found to have elevated troponins with no EKG changes most likely NSTEMI. He was admited to telemetry floor. Monitored vitals closely every shift. He was placed on continuous telemetry monitoring. Troponins were trended down with no serial EKG changes. He received aspirin and statin in the hospital. Patient underwent exercise nuclear stress test- Normal exercise stress and resting myocardial perfusion studywith normal left ventricular wall motion and ejection fraction. He was discharged on aspirin 81 mg daily and atorvastatin 40 mg daily. He was advised to follow with pillowcase turner within 1-2 weeks after discharge. Patient is full code Pharmacological DVT prophylaxis- lovenox Heart healthy diet Complications: none Allergies: Coded Allergies: No Known Allergies (12/13/15) Significant Procedures: EXAM TYPE: NUC - MYOCARDIAL PERFUSION IMAGING EXERCISE STRESS AND RESTING SPECT MYOCARDIAL PERFUSION IMAGING STUDY WITH GATED SPECT IMAGES: CLINICAL INDICATION: Chest pain. PROCEDURE: Regional myocardial perfusion was assessed using a 1 day protocol. Stress images were obtained on 09/15/2016 following the intravenous administration of 17.6 mCi Tc 99m Myoview. Stress was performed using the standard Kevin protocol, with the patient reaching a peak heart rate of 91% maximal predicted heart rate. Rest images were obtained 09/15/2016 following the intravenous administration of 28.7 mCi Technetium 99m Myoview. Single photon emission tomographic (SPECT) images were obtained. SPECT images were acquired in a 64 x 64 matrix of 64 projections over 180 degrees. These were reconstructed into standard short axis, horizontal and vertical long axis cardiac projections. FINDINGS: The post stress images demonstrate the left ventricular chamber to be normal in size. There is homogeneous distribution of activity in the left ventricular myocardium with no regions of abnormally decreased activity noted. The resting images also demonstrate homogeneous distribution of activity in the left ventricular myocardium, and are not significantly changed from the post stress images. The stress images were obtained using a gated SPECT technique, which permits visualization of wall motion and calculation of the left ventricular ejection fraction. No left ventricular wall motion abnormalities are noted on the stress study. The calculated left ventricular ejection fraction is 51% on the stress study. No previous study is available for comparison. IMPRESSION: Normal exercise stress and resting myocardial perfusion study with normal left ventricular wall motion and ejection fraction. Pertinent Lab Results: cxr FINDINGS: The lungs are well expanded. There is no focal consolidation, edema, or effusion. No pneumothorax. The cardiomediastinal silhouette is within normal limits. No acute osseous abnormality. Mild irregularity of the distal right clavicle is likely chronic. IMPRESSION: No acute pulmonary findings. Carotid Doppler IMPRESSION: 1. Approximately 50-79% stenosis of the left ICA distally. 2. Less than 50% luminal narrowing of the right ICA origin. Disposition Summary Disposition Principal Diagnosis: 1. History of TIA 2. Chest pain, with borderline troponin elevation 3. Strong family history of cardiovascular disease Additional Diagnosis: Nuclear stress test-normal Discharge Disposition: home or self care Discharge Instructions General Discharge Information Code Status: Full Code Patient's Diet: As tolerated Patient's Activity: As tolerated Follow-Up Instructions/Appts: Please follow-up with your primary care physician within one week after discharge Please follow-up with your pillowcase turner within 1 week after discharge Medications at Discharge Discharge Medications: Start taking the following new medications: Aspirin (Aspirin*) 81 MG TAB.CHEW 81 Milligram ORAL DAILY Qty = 30 No Refills Comments: Last Taken:09/15/16 Time:2 PM Atorvastatin Calcium (Atorvastatin Calcium) 40 MG TABLET 40 Milligram ORAL 5 PM Qty = 30 No Refills Comments: Last Taken:09/15/16 Time:5 PM Copies To: GILLIAN COWAN,JOSHUA Altamirano
== END 2016-09-15 21:10 | DRG 282 ==
LOC: ERH 02:51 → ERHI 05:00 → 1NO 05:00 → ENRESERV 05:29 → 1NO 06:28
PROVIDERS: Emergency Medicine; Internal Medicine; ADMIT Specialist
DX: I21.4 Non-ST elevation (NSTEMI) myocardial infarction (principal); R79.89 Other specified abnormal findings of blood chemistry; Z86.73 Personal history of transient ischemic attack (TIA), and cerebral infarction without residual deficits; Z82.41 Family history of sudden cardiac death
CPT/HCPCS: 1NSP; 36415; 78452; 80307; 82436; 93005; 93010; 93016; 93017; A9502; G0480; J1650; J3490